=== PATIENT | female | born 1985 | race Caucasian/White ===

== ENCOUNTER → 2017-05-14 | Outpatient (CLI) | payer BC ==
[~2017-05-14] VITALS: Ht 170.2 cm; Wt 69.5 kg
[~2017-05-14] MED LIST: BENTYL20 MG PO; MULTIVITAMIN1 EAC2 PO; NOHOMEMEDS; PRENATAL TABLE1 EAC3 PO; ZOFRAN8 MG PO
[2017-05-14 08:09] VITALS: BP 112/64
== END | disposition home or self-care (01) ==
LOC: IVINF 07:57
DX: Z34.83 Encounter for supervision of other normal pregnancy, third trimester (principal); Z3A.28 28 weeks gestation of pregnancy; Z67.11 Type A blood, Rh negative
CPT/HCPCS: 96372; J2790

== ENCOUNTER 2017-07-21 23:43 | Inpatient (IN) | payer BC ==
[~2017-07-21] VITALS: Ht 170.2 cm; Wt 75.5 kg
[2017-07-21 23:56] VITALS: BP 140/80
[2017-07-22] VITALS (26 sets, daily range): BP systolic 100–146; BP diastolic 52–79
[2017-07-22 01:04] LABS: BASOPHIL (%) 0.5 % (0-1); BASOPHIL COUNT 0.1 K/uL (0-0.1); EOSINOPHIL (%) 0.8 % (0-5); EOSINOPHIL COUNT 0.1 K/uL (0-0.3); HEMATOCRIT 39.5 % (36.0-46.0); HEMOGLOBIN 13.9 G/DL (11.9-15.5); IMMATURE GRANULOCYTE (%) 1.4 % (0.0-0.7); LYMPHOCYTE (%) 16.1 % (15-42); LYMPHOCYTE COUNT 2.1 K/uL (1.0-2.8); MCH 32.1 PG (29.0-34.0); MCHC 35.2 G/DL (30.0-36.0); MCV 91.2 FL (83-99); MONOCYTE (%) 7.8 % (3-12); NEUTROPHIL (%) 73.4 % (45-76); NEUTROPHIL COUNT 9.6 K/uL (1.8-6.4); PLATELET COUNT 195 K/uL (156-360); RBC DIS.WIDTH-CV 12.4 % (11.8-14.6); RBC DIS.WIDTH-SD 40.7 % (39-53); RED BLOOD COUNT 4.33 M/uL (3.80-5.20); WHITE BLOOD COUNT 13.1 K/uL (4.1-10.2)
[2017-07-22 01:10] LABS: AMPHETAMINE NEGATIVE (500 ng/mL); BARBITURATES NEGATIVE (200 ng/mL); BENZODIAZEPINES NEGATIVE (150 ng/mL); BUPRENORPHINE NEGATIVE (10 ng/mL); COCAINE NEGATIVE (150 ng/mL); METHADONE NEGATIVE (200 ng/mL); METHAMPHETAMINE NEGATIVE (500 ng/mL); OPIATES (MORPHINE) NEGATIVE (100 ng/mL); OXYCODONE NEGATIVE (100 ng/mL); PHENCYCLIDINE NEGATIVE (25 ng/mL); PROPOXYPHENE NEGATIVE (300 ng/mL); THC CANNABINOIDS NEGATIVE (50 ng/mL); TRICYCLIC ANTIDEPRESSANTS NEGATIVE (300 ng/mL)
[2017-07-22] MEDS ORDERED: MOTRIN800 MG PO (20:32)
[2017-07-22] MEDS ORDERED: PERCOCET 5/31 TABLET PO (20:32)
[2017-07-23 00:12] VITALS: BP 131/61
[2017-07-23 02:18] VITALS: BP 122/62
[2017-07-23 06:06] LABS: BASOPHIL (%) 0.2 % (0-1); EOSINOPHIL (%) 0.1 % (0-5); HEMATOCRIT 30.3 % (36.0-46.0); LYMPHOCYTE (%) 9.3 % (15-42); LYMPHOCYTE COUNT 1.7 K/uL (1.0-2.8); MCH 32.3 PG (29.0-34.0); MCHC 34.3 G/DL (30.0-36.0); MCV 94.1 FL (83-99); MONOCYTE (%) 4.5 % (3-12); MONOCYTE COUNT 0.8 K/uL (0-0.8); NEUTROPHIL (%) 84.9 % (45-76); NEUTROPHIL COUNT 15.4 K/uL (1.8-6.4); PLATELET COUNT 176 K/uL (156-360); RBC DIS.WIDTH-CV 12.7 % (11.8-14.6); RBC DIS.WIDTH-SD 43.5 % (39-53); WHITE BLOOD COUNT 18.2 K/uL (4.1-10.2)
[2017-07-23 06:10] LABS: HEMOGLOBIN 10.4 G/DL (11.9-15.5); RED BLOOD COUNT 3.22 M/uL (3.80-5.20)
[2017-07-23 07:46] VITALS: BP 133/61
[2017-07-23 11:09] VITALS: BP 140/70
[2017-07-23 15:43] VITALS: BP 124/58
[2017-07-23 23:28] VITALS: BP 119/58
[2017-07-24 07:55] VITALS: BP 122/65
[2017-07-24 11:15] VITALS: BP 117/59
[2017-07-24 15:52] VITALS: BP 127/64
[2017-07-24 22:24] VITALS: BP 118/59
[2017-07-26 07:25] VITALS: BP 121/65
== END 2017-07-26 14:28 | disposition home or self-care (01) | DRG 765 ==
LOC: LDRP-OP 23:43 → 2WEST 23:44 → LDRP-OP 09-01 11:25
PROVIDERS: Advanced Practice Midwife; Obstetrics & Gynecology
DX: O62.1 Secondary uterine inertia (principal); O42.02 Full-term premature rupture of membranes, onset of labor within 24 hours of rupture; O69.81X0 Labor and delivery complicated by cord around neck, without compression, not applicable or unspecified; Z3A.38 38 weeks gestation of pregnancy; Z37.0 Single live birth; O34.13 Maternal care for benign tumor of corpus uteri, third trimester; D25.9 Leiomyoma of uterus, unspecified; O26.893 Other specified pregnancy related conditions, third trimester; Z67.11 Type A blood, Rh negative; O99.284 Endocrine, nutritional and metabolic diseases complicating childbirth; E72.12 Methylenetetrahydrofolate reductase deficiency; Z79.82 Long term (current) use of aspirin
CPT/HCPCS: 83030; 85025; 86850; 86870; 86900; 86901; 86920; C1755; G0378; J0690; J1170; J1200; J1885; J2274; J2405; J2790; J3010; J7120